=== PATIENT | male | born 1960 | race Caucasian/White ===

== ENCOUNTER → 2019-11-22 08:09 | Outpatient (CLI) | payer OTHER, SELFPAY ==
[2019-11-22 09:28] LABS: ALB/GLOB Ratio 1.1 RATIO (0.9-2.4); AST(SGOT) 30 U/L (15-37); Alanine Aminotransfer ALT/SGPT 42 U/L (16-61); Albumin, Serum 4.1 g/dL (3.2-5.0); Alkaline Phosphatase 55 U/L (45-117); Anion Gap 7 (5-15); BUN 12 mg/dL (7-18); BUN/Creat Ratio 12.8 RATIO (10-20); Chloride 102 mmol/L (98-107); Cholesterol 251 mg/dL (200); Creatinine, Serum 0.94 mg/dL (0.70-1.30); EST Glomerular Filtration Rate 87 mL/min (>60); Est Glom Filt Rate - Afr Amer 106 mL/min (>60); Globulin 3.8 g/dL (2.2-4.2); Glucose 100 mg/dL (74-106); High Density Lipoprotein 116 mg/dL; Protein, Total 7.9 g/dL (6.4-8.2); Sodium Level 139 mmol/L (136-145); Triglycerides 79 mg/dL; Very Low Density Lipoprotein 16 mg/dL (5-40)
== END ==
PROVIDERS: PCP Internal Medicine; Referring Provider Internal Medicine; Visit Provider Internal Medicine
DX: I10 Essential (primary) hypertension (principal); E78.5 Hyperlipidemia, unspecified
CPT/HCPCS: 36415; 80053; 80061

== ENCOUNTER 2020-06-11 05:54 | Day surgery (SDC) | payer OTHER, SELFPAY ==
[2020-05-24 14:59] VITALS: BMI 26.9
--- NOTE | 2020-06-04 09:03 | EKG12_ITS ---
Test Reason : PRE OP Blood Pressure : / mmHG Vent. Rate : 073 BPM Atrial Rate : 073 BPM P-R Int : 174 ms QRS Dur : 108 ms QT Int : 380 ms P-R-T Axes : 048 -03 038 degrees QTc Int : 418 ms Normal sinus rhythm Normal ECG Confirmed by ANNALEE SALAS, BOB ([id number]), publication editor HITESH MONTAÑO ([id number]) on 06/05/2020 9:25:04 AM Referred By: Vitaliy Farfan Confirmed By:BOB MANTILLA MD
[2020-06-04 10:10] LABS: Anion Gap 5 (5-15); BUN 12 mg/dL (7-18); BUN/Creat Ratio 13.6 RATIO (10-20); Calcium,Total 9.6 mg/dL (8.5-10.1); Chloride 101 mmol/L (98-107); Creatinine, Serum 0.88 mg/dL (0.70-1.30); EST Glomerular Filtration Rate 94 mL/min (>60); Est Glom Filt Rate - Afr Amer 113 mL/min (>60); Glucose 105 mg/dL (74-106); Potassium 4.1 mmol/L (3.5-5.1); Sodium Level 136 mmol/L (136-145)
[2020-06-05 17:34] VITALS: BMI 26.4
[2020-06-11] VITALS (9 sets, daily range): BP systolic 121–159; BP diastolic 72–93; PULSE 77–87; RESP 16; TEMP 36.6–37.5; O2SAT 93–100; BMI 26.3
--- NOTE | 2020-06-11 06:00 | HP_ITS ---
Intake Vital Signs 05/24/20 BMI 26.9 05/24/20 Height 5 ft 10 in 05/24/20 Weight: 193 lb 8 oz 05/24/20 BMI 27.7 05/24/20 BP 132/87 H 05/24/20 Blood Pressure Location Rt brachial 05/24/20 Position Sitting 05/24/20 Respiration 20 H 05/24/20 Pulse 99 05/24/20 Temp 98.1 F 05/24/20 Temp Source Temporal 05/24/20 Pulse Oximetry (%) 95 05/24/20 Oxygen Delivery Method room air Intake Visit Reasons: HERNIA Chief Complaint: inguinal hernia Rod Puller Required: No Is patient in pain?: No Allergies No Known Allergies Allergy (Verified 05/24/20 14:59) Medications amlodipine 10 mg tablet 10 mg PO DAILY #90 tab 09/18/19 [Rx Confirmed 05/24/20] benazepril 20 mg-hydrochlorothiazide 25 mg tablet 1 tab PO DAILY #90 tab 03/22/20 [Rx Confirmed 05/24/20] PFSH Medical History (Updated 05/24/20 @ 14:58 by Sarah Marshall) Right inguinal hernia (Acute) Hearing problem (Acute) Hypertension (Chronic) Surgical History (Updated 05/24/20 @ 14:58 by Sarah Marshall) History of colonoscopy (Acute ~2014) History of hernia repair (Acute ~2017) Family History Father Colon cancer Heart disease Hypertension Social History (Updated 05/24/20 @ 15:[address] Vitaliy Farfan MD) Smoking Status: Former smoker quit date: 08/23/93 pack-years: 3 Tobacco: How many years used: 7 how long ago did patient quit smokin years ago second hand exposure: No alcohol intake: current alcohol intake frequency: holidays/special occasions only Alcohol type: beer substance use type: does not use well-balanced diet: daily or most days caffeine: Yes (3 a day) Type: coffee during the past year weight has: remained stable what type of physical activity do you participate in: aerobics, weight training frequency: 5-6 times per week duration: 45-60 minutes/day seatbelt use: always do you feel safe at home: Yes HPI HPI HPI: ANDREE ALLEN, is a 59 M who presents to the office today for HPI HPI Surgical H&P: Yes HPI: ANDREE ALLEN, is a 59 M who presents to the office today for Right groin bulging and pain. The patient has had a history of left inguinal hernia repair with mesh. Patient reports he is having no issues on that side but he has been having bulging on the right. Patient notes that it is painful and the bulging goes away on its own. ROS General General: No weight change, appetite, fatigue, colon cancer, breast cancer or weakness HEENT HEENT: No difficulty swallowing, eye injury, eye surgery, swollen glands or hoarseness Endo Endocrine: No thyroid disease, diabetes mellitus, thyroid cancer, Hair loss, heat intolerance or cold intolerance Cardio Cardiovascular: Yes high blood pressure; no murmur, pacemaker, heart disease, atrial fibrillation, heart attack, heart stent, palpitations, shortness of breat with exertion or chest pain Psych Psychiatric: No depression, anxiety or hearing voices Resp Respiratory: No shortness of breath, No sleep apnea, No cough, No COPD, No asthma, No emphysema, No wheezing Gastro Gastrointestinal: No abdominal pain, No nausea or vomiting, No diarrhea, No constipation, No blood in stool, No acid reflux, No hemorrhoids, No ulcers, No gallbladder problem, No black,tarry stools Aiden Hematologic: No blood thinners, No blood disorders, No bleeding, No anemia, No blood clots Neuro Neurologic: No weakness Exam Const General: cooperative Orientation: alert, oriented x3 Resp Effort & Inspection: normal respiratory effort Auscultation: clear to auscultation bilaterally Cardio Rate: regular rate Rhythm: regular rhythm Heart Sounds: no murmurs GI Inspection: non-distended Palpation: soft, hernia indirect inguinal on the right, nontender Assessment & Plan Problems 1. Right inguinal hernia K40.90 Plan Patient has a right inguinal hernia. I discussed robotic assisted laparoscopic right inguinal hernia repair with mesh. I discussed the risks including but not limited to bleeding, infection, injury to other organs, injury to spermatic cord, recurrence of hernia. The patient understands the risks and is well to proceed. We discussed the current risks associated with COVID-19. While it is understood that there is a community spread of COVID-19, the risk of ernesto COVID-19 while at [facility] ([facility]) is very low; however, the risk cannot be completely mitigated because of the community spread of the disease. We discussed in detail the risk of exposure to and/or potential harm posed by the COVID-19 virus with having a surgery/procedure at this time versus the risk of delaying the surgery/procedure. It is not possible to know either the risk of delaying the surgery or procedure or chance of getting an infection with perfect accuracy, but a joint decision was made to proceed at this time with the scheduled surgery/procedure as indicated on the consent form. Patient was notified that we will need to comply with any screening or testing [facility] wishes to perform or that surgery may be delayed for any positive results. Vitaliy Farfan MD Pager: [facility] [address] [place] [address], [address] [place] [address] Office: Coding Level of Care Code Off vis,new,level 3 Diagnoses Right inguinal hernia K40.90 I have re-examined the patient. There are no clinical changes since date of exam.
[2020-06-11] MEDS: Lactated Ringers 1,000 ML 100 ML IV ×2 (06:45→08:45)
[2020-06-11] MEDS: Cefazolin 2 GM in 0.9% Normal Saline 100 ML IV (07:25)
[2020-06-11] MEDS: Bupivacaine Mpf 0.5% 30 ML VIAL (08:36)
--- NOTE | 2020-06-11 09:15 | PCM.OPRPT ---
Problem List (1) Right inguinal hernia Status: Acute Report of Operation Date of Procedure: 06/11/20 Pre-Operative Diagnosis: Right inguinal hernia Post-Operative Diagnosis: Same Surgery/Procedure Performed:: Robotic assisted laparoscopic right inguinal hernia repair with mesh Description of Procedure: Patient was brought back to the operating room and general anesthesia was induced. The abdomen was prepped and draped in usual sterile fashion. An incision was made superior to the umbilicus and the fascia was grasped and elevated and a Veress needle was placed into the abdomen and a drop test was performed. The abdomen was then insufflated to 15 mmHg and the Veress needle was removed. The camera port was placed into the abdomen. The camera was placed and the abdomen inspected for injuries and there were none. The patient had a large right inguinal hernia. Next a right lower quadrant and left lower quadrant 8 mm port were placed and the patient was placed in Trendelenburg position and the robot was docked. Next the scissors with cautery used to make an incision in the peritoneum and the flap was dissected inferiorly until the hernia sac was identified. The hernia sac was reduced into the abdomen and its adhesions were lysed. Once the hernia was cleared on all sides a progrip mesh was unfolded and placed into the inguinal region completely covering the hernia. The peritoneum was reapproximated using a running 3 OV lock suture. The mesh was completely covered by peritoneum at the end of the procedure. Next the robot was undocked and the ports removed allowing the air to desufflate from the abdomen. The incisions were anesthetized and closed with interrupted 4-0 Monocryl sutures as well as Steri-Strips and bandages. Patient tolerated the procedure well and the scrotum was checked at the end of the case and contain both testicles. Grafts/Implants Used: Progrip mesh - Admit VTE Documentation VTE Mechan Device Prophylaxis: SCD's
--- NOTE | 2020-06-11 09:25 | PCM.DC.HER ---
Discharge Diet: Light diet - advance as tolerated Discharge Activity: Return to Normal Activity, May Not Drive - for 2-3 days or while taking narcotic pain meds., May Shower - with the bandage in place 1-2 days after surgery. Lifting Restrictions: 20 pounds for 6 weeks. Additional Activity Instructions:: Climbing stairs is fine, walking is encouraged. Sitting in bed may be uncomfortable. Sitting up using your lateral muscles (sitting up sideways) is usually more comfortable. Do not drive, work heavy equipment of sign legal documents for 24 hours. If your hernia repair was an ingunial repair, you may have scrotal swelling, an ice pack and/or athletic support can provide more comfort. Pain medications may cause nausea, you should typically eat light foods as you take your pain medications. Pain medications may also cause constipation. If you have difficulty with this, discuss with your doctor. Call your doctor if your incision/area has: Continuous Slow Oozing, Sudden Increased Bleeding, Increased Pain/ Swelling, Increased Redness, Foul Smelling Discharge Call your doctor if you observe: Fever of 101 or Higher Suture Line Care: Avoid Pulling/Pushing, Avoid Pinching/Bending Change Dressing in (Days):: 3 - Leave steri-strips for 1 week. May protect with a guaze bandaid. Cleanse incision/area with: Keep Dressing Clean & Dry Allergies/Adverse Reactions: Allergies No Known Allergies Allergy (Verified 06/05/20 17:31) Medications to take at Discharge amlodipine 10 mg tablet 10 mg PO DAILY #90 tab 09/18/19 benazepril 20 mg-hydrochlorothiazide 25 mg tablet 1 tab PO DAILY #90 tab 03/22/20 Oxycodone HCl/Acetaminophen [Percocet 5-325 mg Tablet] 1 - 2 tab PO Q6H PRN PRN 5 Days #20 tablet 06/11/20 The following prescriptions were given: Oxycodone HCl/Acetaminophen [Percocet 5-325 mg Tablet] 1 - 2 tab PO Q6H PRN PRN 5 Days #20 tablet PRN Reason: Pain Score 4-10/10 Transmission Status: Sent to [facility] Test Results: Test results from this visit will be discussed in further detail at your follow-up appointment, if applicable. Please Follow Up With: Vitaliy Farfan MD When: Please call to schedule 2 week follow up appointment. [phone]
== END 2020-06-11 10:57 | disposition home or self-care (01) ==
LOC: SDC 05:54 → AC 05:55
PROVIDERS: Anesthesiology; PCP Internal Medicine; Referring Provider Surgery; Visit Provider Surgery
PROC: (CPT 49650; principal; 2020-06-11 07:10)
DX: K40.90 Unilateral inguinal hernia, without obstruction or gangrene, not specified as recurrent (principal); I10 Essential (primary) hypertension; Z87.891 Personal history of nicotine dependence; Z79.899 Other long term (current) drug therapy; Z20.818 Contact with and (suspected) exposure to other bacterial communicable diseases
CPT/HCPCS: 00840; 49650; S2900; 36415; 80048; 87635; 93005; C9803; J7120; A4216; J2405; U0003

== ENCOUNTER → 2020-12-17 09:23 | Outpatient (CLI) | payer OTHER, SELFPAY ==
[2020-09-11 17:37] VITALS: BMI 25.8
[2020-12-17 12:54] LABS: Absolute Lymphocyte Count 1.48 X10^3/uL (0.83-4.51); Basophil# 0.02 X10^3/uL; Basophil% 0.2 % (0-1); Eosinophils% 1.1 % (0-5); Hematocrit 49.1 % (40-54); Hemoglobin 16.5 g/dL (13.0-16.5); Lymphocyte # 1.48 X10^3/ul (0.83-4.51); Lymphocyte % 15.6 % (19-41); Mean Corp Hgb Conc 33.6 g/dL (32-36); Mean Corpuscular Hgb 30.7 pg (27.0-32.0); Mean Corpuscular Volume 91.4 fL (80-94); Mean Platelet Vol. 9.6 fl (6.2-12.0); Monocyte# 0.89 X10^3/uL; Monocyte% 9.4 % (0-10); NRBC Flagged by Analyzer 0 % (0-5); Neutrophil # 6.98 X10^3/uL (2.7-7.7); Neutrophil % 73.4 % (47-70); Platelet Count 352 K/mm3 (150-450); RBC Distribution Width CV 12.7 % (11.6-14.6); RBC Distribution Width SD 42.9 fl (35.1-43.9); Red Blood Count 5.37 M/mm3 (4.6-6.2); White Blood Count 9.5 K/mm3 (4.4-11.0)
[2020-12-17 13:29] LABS: ALB/GLOB Ratio 1.1 RATIO (0.9-2.4); AST(SGOT) 31 U/L (15-37); Alanine Aminotransfer ALT/SGPT 42 U/L (16-61); Albumin, Serum 4.1 g/dL (3.2-5.0); Alkaline Phosphatase 57 U/L (45-117); Anion Gap 6 (5-15); BUN 17 mg/dL (7-18); BUN/Creat Ratio 19.5 RATIO (10-20); Calcium,Total 9.9 mg/dL (8.5-10.1); Chloride 99 mmol/L (98-107); Cholesterol 256 mg/dL (200); Creatinine, Serum 0.87 mg/dL (0.70-1.30); EST Glomerular Filtration Rate 95 mL/min (>60); Est Glom Filt Rate - Afr Amer 115 mL/min (>60); Globulin 3.9 g/dL (2.2-4.2); Glucose 123 mg/dL (74-106); High Density Lipoprotein 122 mg/dL; Sodium Level 136 mmol/L (136-145); T4 Free Direct 1.02 ng/dL (0.76-1.46); Thyroid Stim Hormone (TSH) 0.87 uIU/mL (0.358-3.74); Triglycerides 94 mg/dL; Very Low Density Lipoprotein 19 mg/dL (5-40)
== END ==
PROVIDERS: PCP Internal Medicine; Referring Provider Internal Medicine; Visit Provider Internal Medicine
DX: I10 Essential (primary) hypertension (principal); E78.5 Hyperlipidemia, unspecified; R63.4 Abnormal weight loss; R19.4 Change in bowel habit
CPT/HCPCS: 36415; 80053; 80061; 83630; 84439; 84443; 85025; 87506

== ENCOUNTER → 2021-07-23 14:47 | Outpatient (CLI) | payer OTHER, SELFPAY | PROVIDERS: PCP Internal Medicine; Visit Provider Family Medicine | DX: Z23 Encounter for immunization (principal) | CPT/HCPCS: 0004A; 91300 ==

== ENCOUNTER → 2022-03-27 | Outpatient (CLI) | payer OTHER, SELFPAY ==
[2022-03-27 12:44] LABS: Absolute Lymphocyte Count 1.98 X10^3/uL (0.83-4.51); Absolute Neutrophil Count 3.2 X10^3/uL (2.0-7.7); Basophil# 0.03 X10^3/uL; Basophil% 0.5 % (0-1); Eosinophil# 0.33 X10^3/uL; Eosinophils% 5.4 % (0-5); Hematocrit 47.6 % (40-54); Hemoglobin 16.3 g/dL (13.0-16.5); Lymphocyte # 1.98 X10^3/ul (0.83-4.51); Lymphocyte % 32.2 % (19-41); Mean Corp Hgb Conc 34.2 g/dL (32-36); Mean Corpuscular Hgb 31.5 pg (27.0-32.0); Mean Corpuscular Volume 91.9 fL (80-94); Mean Platelet Vol. 9.4 fl (6.2-12.0); Monocyte# 0.59 X10^3/uL; Monocyte% 9.6 % (0-10); NRBC Flagged by Analyzer 0 % (0-5); Neutrophil # 3.19 X10^3/uL (2.7-7.7); Neutrophil % 51.8 % (47-70); Platelet Count 366 K/mm3 (150-450); RBC Distribution Width CV 12.6 % (11.6-14.6); RBC Distribution Width SD 43.4 fl (35.1-43.9); Red Blood Count 5.18 M/mm3 (4.6-6.2); White Blood Count 6.2 K/mm3 (4.4-11.0)
[2022-03-27 12:49] LABS: ALB/GLOB Ratio 1.1 RATIO (0.9-2.4); AST(SGOT) 21 U/L (15-37); Alanine Aminotransfer ALT/SGPT 38 U/L (16-61); Albumin, Serum 4.1 g/dL (3.2-5.0); Alkaline Phosphatase 48 U/L (45-117); Anion Gap 4 (5-15); BUN 18 mg/dL (7-18); BUN/Creat Ratio 18.2 RATIO (10-20); Calcium,Total 9.2 mg/dL (8.5-10.1); Chloride 102 mmol/L (98-107); Cholesterol 251 mg/dL (200); Creatinine, Serum 0.99 mg/dL (0.70-1.30); EST Glomerular Filtration Rate 81 mL/min (>60); Est Glom Filt Rate - Afr Amer 99 mL/min (>60); Globulin 3.8 g/dL (2.2-4.2); Glucose 90 mg/dL (74-106); High Density Lipoprotein 93 mg/dL; Potassium 4.6 mmol/L (3.5-5.1); Protein, Total 7.9 g/dL (6.4-8.2); Sodium Level 138 mmol/L (136-145); Triglycerides 55 mg/dL; Very Low Density Lipoprotein 11 mg/dL (5-40)
== END | disposition home or self-care (01) ==
LOC: BIMLAB 08:25
PROVIDERS: PCP Internal Medicine; Referring Provider Internal Medicine; Visit Provider Internal Medicine
DX: I10 Essential (primary) hypertension (principal)
CPT/HCPCS: 36415; 80053; 80061; 85025

== ENCOUNTER → 2022-11-18 | Outpatient (CLI) | payer OTHER, SELFPAY ==
[2022-11-18 12:44] LABS: Anion Gap 5 (5-15); BUN 18 mg/dL (7-18); BUN/Creat Ratio 17.6 RATIO (10-20); Calcium,Total 9.8 mg/dL (8.5-10.1); Chloride 102 mmol/L (98-107); Cholesterol 252 mg/dL (200); Creatinine, Serum 1.02 mg/dL (0.70-1.30); EST Glomerular Filtration Rate 79 mL/min (>60); Est Glom Filt Rate - Afr Amer 95 mL/min (>60); Glucose 110 mg/dL (74-106); High Density Lipoprotein 95 mg/dL; Potassium 5.1 mmol/L (3.5-5.1); Sodium Level 137 mmol/L (136-145); Triglycerides 113 mg/dL; Very Low Density Lipoprotein 23 mg/dL (5-40)
== END | disposition home or self-care (01) ==
LOC: BIMLAB 09:57
PROVIDERS: PCP Internal Medicine; Referring Provider Nurse Practitioner Family; Visit Provider Nurse Practitioner Family
DX: I10 Essential (primary) hypertension (principal); E78.5 Hyperlipidemia, unspecified; Z12.5 Encounter for screening for malignant neoplasm of prostate
CPT/HCPCS: 36415; 80048; 80061; 84153; G0103

== ENCOUNTER → 2022-12-24 | Outpatient (CLI) | payer OTHER, SELFPAY ==
--- NOTE | 2022-12-24 | IMM_PTH ---
PATIENT: ANDREE ALLEN LOC: [facility] U#:[id number] AGE/SX: 62/M ROOM: RE12/24/[address]: Dr. Howard Boyd MD : 1960 BED: DIS: 12/24/2022 SPEC #: [id number] RECD: 12/28/22 13:17 STATUS: PAUL REQ #: [id number] AILIN: 12/24/22 00:[address]: Howard Boyd DEPT: IMMUNOHISTOCHEMISTRY RECD BY: Candelaria Ramsey ENTERED: 12/28/22 13:18 SP TYPE: IMMUNO OTHR DR: Dr. Veto Jeff MD Tissues: B - PROSTATE RIGHT C - PROSTATE RIGHT D - PROSTATE LEFT F - PROSTATE LEFT Procedures: 34BE12 (add) P40 (add) 34BE12 (initial) PHYSICIAN & INSTITUTION [place] [id number] SPECIMEN INFORMATION: Tissue Source: B - Right mid, C - Right base, D - Left apex, F - Left base Clinical Info: Elevated PSA Specimen Number: [id number] B-D & F CPT code: 66026, 39163 x7 METHODOLOGY: Deparaffinized sections of prefer/formalin-fixed tissue or PAP/DQ stained slides are incubated with monoclonal/polyclonal antibodies/oligonucleotide probes. Localization is made via biotin free immunoperoxidase method. Appropriate controls are performed and reacted as expected. Results on target cell population are indicated in the following table: RESULTS: ANTIBODY / CLONE RESULT Block B P40 (BC28) negative 34BE12 (34BE12) negative Block C P40 (BC28) negative 34BE12 (34BE12) negative Block D P40 (BC28) positive 34BE12 (34BE12) positive Block F P40 (BC28) negative 34BE12 (34BE12) negative These tests were developed and their performance characteristics determined by [facility]. They may not have been cleared or approved by the U.S. Food and Drug Administration. The FDA has determined that such clearance or approval is not necessary. The above immunohistochemical/dualISH markers are ordered and reviewed by the Pathologist. INTERPRETATION: B. Right prostate, mid, core biopsy: Focal atypical small acinar proliferation (GIACOMO). C. Right prostate, base, core biopsy: Focal atypical small acinar proliferation (GIACOMO). D. Left prostate, apex, core biopsy: Prostatic tissue, negative for malignancy. F. Left prostate, base, core biopsy: Focal atypical small acinar proliferation (GIACOMO). SJ:chula 12/29/2022
--- NOTE | 2022-12-24 08:00 | PROSBIL_PTH ---
PATIENT: ANDREE ALLEN LOC: [facility] U#:[id number] AGE/SX: 62/M ROOM: RE12/24/[address]: Dr. Howard Boyd MD : 1960 BED: DIS: 12/24/2022 SPEC #: [id number] RECD: 12/24/22 12:29 STATUS: PAUL AME #: [id number] AILIN: 12/24/22 08:[address]: Howard Boyd DEPT: SURGICAL PATHOLOGY RECD BY: Angelic Dumont ENTERED: 12/25/22 12:29 SP TYPE: PROST BX NITIN DR: Dr. Veto Jeff MD Tissues: A - PROSTATE RIGHT B - PROSTATE RIGHT C - PROSTATE RIGHT D - PROSTATE LEFT E - PROSTATE LEFT F - PROSTATE LEFT Procedures: PROSTATE BX HEADER OPERATION: Prostate biopsy PRE-OP DIAGNOSIS: Elevated PSA TISSUE SUBMITTED: A - Right apex, B - Right mid, C - Right base, D - Left apex, E - Left mid, F - Left base MICROSCOPIC DIAGNOSIS A. Right prostate, apex, core biopsy: Prostatic tissue, negative for malignancy. B. Right prostate, mid, core biopsy: Focal atypical small acinar proliferation (GIACOMO). See comment. C. Right prostate, base, core biopsy: Focal atypical small acinar proliferation (GIACOMO). See comment. D. Left prostate, apex, core biopsy: Prostatic tissue, negative for malignancy. See comment. E. Left prostate, mid, core biopsy: Prostatic tissue, negative for malignancy. F. Left prostate, base, core biopsy: Atypical small acinar proliferation (GIACOMO). See comment. SJ:rg 12/28/2022 COMMENT B-D & F - Immunohistochemistry ([id number]) supports the above diagnosis. Case has been reviewed in consultation with Dr. Garcia who concurs with the above diagnosis. IDC:AM MICROSCOPIC DESCRIPTION Slides are reviewed. GROSS DESCRIPTION A - Received is one container designated prostate, right apex. The specimen consists of one elongated fragment of light kapoor-white soft tissue measuring 1.2 cm in length and 0.1 cm in diameter. The specimen is totally submitted in one cassette. B - Received is one container designated prostate, right mid. The specimen consists of two elongated fragments of light kapoor-white soft tissue each measuring 1.0 cm in length and 0.1 cm in diameter. The specimen is totally submitted in one cassette. C - Received is one container designated prostate, right base. The specimen consists of two elongated fragments of light kapoor-white soft tissue each measuring 0.7 cm in length and 0.1 cm in diameter. The specimen is totally submitted in one cassette. D - Received is one container designated prostate, left apex. The specimen consists of one elongated fragment of light kapoor-white soft tissue measuring 1.2 cm in length and 0.1 cm in diameter. The specimen is totally submitted in one cassette. E - Received is one container designated prostate, left mid. The specimen consists of two elongated fragments of light kapoor-white soft tissue each measuring 1.2 cm in length and 0.1 cm in diameter. The specimen is totally submitted in one cassette. F - Received is one container designated prostate, left base. The specimen consists of two elongated fragments of light kapoor-white soft tissue each measuring 1.2 cm in length and 0.1 cm in diameter. The specimen is totally submitted in one cassette. / SJ:rg 12/25/2022 TC:5 CPT: 32379 x6
== END | disposition home or self-care (01) ==
LOC: LABSPEC 16:17
PROVIDERS: PCP Internal Medicine; Referring Provider Urology; Visit Provider Urology
DX: R97.20 Elevated prostate specific antigen [PSA] (principal)
CPT/HCPCS: 88305; 88341; 88342; G0416

== ENCOUNTER → 2023-05-21 | Outpatient (CLI) | payer OTHER, SELFPAY ==
[2023-05-21 12:17] LABS: Absolute Lymphocyte Count 1.35 X10^3/uL (0.83-4.51); Absolute Neutrophil Count 4.1 X10^3/uL (2.0-7.7); Basophil# 0.03 X10^3/uL; Basophil% 0.5 % (0-1); Eosinophil# 0.15 X10^3/uL; Eosinophils% 2.4 % (0-5); Hematocrit 46.9 % (40-54); Hemoglobin 15.9 g/dL (13.0-16.5); Lymphocyte # 1.35 X10^3/ul (0.83-4.51); Lymphocyte % 21.6 % (19-41); Mean Corp Hgb Conc 33.9 g/dL (32-36); Mean Corpuscular Hgb 31.5 pg (27.0-32.0); Mean Corpuscular Volume 92.9 fL (80-94); Mean Platelet Vol. 9.4 fl (6.2-12.0); Monocyte# 0.55 X10^3/uL; Monocyte% 8.8 % (0-10); NRBC Flagged by Analyzer 0 % (0-5); Neutrophil # 4.12 X10^3/uL (2.7-7.7); Neutrophil % 65.7 % (47-70); Platelet Count 331 K/mm3 (150-450); RBC Distribution Width CV 12.6 % (11.6-14.6); RBC Distribution Width SD 43.1 fl (35.1-43.9); Red Blood Count 5.05 M/mm3 (4.6-6.2); White Blood Count 6.3 K/mm3 (4.4-11.0)
[2023-05-21 13:07] LABS: AST(SGOT) 29 U/L (15-37); Alanine Aminotransfer ALT/SGPT 49 U/L (16-61); Albumin, Serum 3.9 g/dL (3.2-5.0); Alkaline Phosphatase 52 U/L (45-117); Anion Gap 6 (5-15); BUN 13 mg/dL (7-18); BUN/Creat Ratio 14.5 RATIO (10-20); Calcium,Total 9.4 mg/dL (8.5-10.1); Chloride 102 mmol/L (98-107); Cholesterol 244 mg/dL (200); EST Glomerular Filtration Rate 91 mL/min (>60); Est Glom Filt Rate - Afr Amer 110 mL/min (>60); Globulin 3.8 g/dL (2.2-4.2); Glucose 102 mg/dL (74-106); High Density Lipoprotein 106 mg/dL; Potassium 4.5 mmol/L (3.5-5.1); Protein, Total 7.7 g/dL (6.4-8.2); Sodium Level 135 mmol/L (136-145); Triglycerides 102 mg/dL; Very Low Density Lipoprotein 20 mg/dL (5-40)
== END | disposition home or self-care (01) ==
LOC: BIMLAB 08:42
PROVIDERS: PCP Internal Medicine; Referring Provider Internal Medicine; Visit Provider Internal Medicine
DX: I10 Essential (primary) hypertension (principal); E78.5 Hyperlipidemia, unspecified
CPT/HCPCS: 36415; 80053; 80061; 85025

== ENCOUNTER → 2023-07-13 | Outpatient (CLI) | payer OTHER, SELFPAY | END | disposition home or self-care (01) | LOC: BIMLAB 09:15 | PROVIDERS: PCP Internal Medicine; Visit Provider Urology | DX: R97.20 Elevated prostate specific antigen [PSA] (principal) | CPT/HCPCS: 36415; 84153 ==

== ENCOUNTER 2024-02-02 19:24 | Emergency (ER) | payer OTHER, SELFPAY ==
[2024-02-02 19:25] VITALS: BP 135/90; PULSE 95; RESP 18; TEMP 36.6; O2SAT 93; BMI 26.5
--- NOTE | 2024-02-02 19:27 | CT_ITS ---
STUDY: CT BRAIN WITHOUT CONTRAST REASON FOR EXAM: Male, 63 years old. Trauma RADIATION DOSAGE (If Supplied By Facility): CTDIvol = ( 44.99 ) mGy, DLP = ( 829.85 ) mGycm TECHNIQUE: Transaxial CT imaging of the brain was performed without administration of intravenous contrast material. Individualized dose optimization techniques were used for this CT. COMPARISON: No relevant priors. FINDINGS: There is left frontal soft tissue swelling. Normal calvarium. Normal size ventricles and extra-axial spaces for the patient''s age. Normal white matter tracts of the cerebral hemispheres. Normal basal ganglia and thalami. Normal brainstem. Normal cerebellum. There is no intracranial hemorrhage. There are no findings of an acute ischemic infarction. Normal visualized paranasal sinuses. CT/Brain/Head without Contrast IMPRESSION: Normal unenhanced CT scan of the brain. Electronically Signed: Sacha Tao MD at 20:45 EDT ,
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
[2024-02-02] MEDS: Diphth,Pertuss(Acell),Tet Vac 0.5 ML Vial IM (19:57)
[2024-02-02] MEDS: Lidocaine/Epi/Tetracaine 50 ML 1 APPLIC TOPICAL (19:57)
[2024-02-02] MEDS: Lidocaine 2% /Epi 1:100 (50ml) 50 ML Vial INFILT (20:23)
[2024-02-02 21:24] VITALS: BP 134/78; PULSE 68; RESP 18; TEMP 37.2; O2SAT 99
== END 2024-02-02 22:05 | disposition home or self-care (01) ==
PROVIDERS: Emergency Provider Emergency Medicine; PCP Internal Medicine; Visit Provider Emergency Medicine
DX: S01.91XA Laceration without foreign body of unspecified part of head, initial encounter (principal); T21.12XA Burn of first degree of abdominal wall, initial encounter; T22.111A Burn of first degree of right forearm, initial encounter; T20.15XA Burn of first degree of scalp [any part], initial encounter; F10.129 Alcohol abuse with intoxication, unspecified; I10 Essential (primary) hypertension; Z23 Encounter for immunization; Z79.899 Other long term (current) drug therapy; W19.XXXA Unspecified fall, initial encounter; Z87.891 Personal history of nicotine dependence
CPT/HCPCS: 12013; 70450; 90471; 90715; 99285

== ENCOUNTER → 2024-10-18 | Outpatient (CLI) | payer OTHER, SELFPAY ==
[2024-10-18 12:39] LABS: Absolute Lymphocyte Count 1.57 X10^3/uL (0.83-4.51); Absolute Neutrophil Count 7.1 X10^3/uL (2.0-7.7); Basophil# 0.04 X10^3/uL; Basophil% 0.4 % (0-1); Eosinophil# 0.14 X10^3/uL; Eosinophils% 1.4 % (0-5); Hematocrit 48.1 % (40-54); Hemoglobin 16.3 g/dL (13.0-16.5); Lymphocyte # 1.57 X10^3/ul (0.83-4.51); Lymphocyte % 16.1 % (19-41); Mean Corp Hgb Conc 33.9 g/dL (32-36); Mean Corpuscular Hgb 31.1 pg (27.0-32.0); Mean Corpuscular Volume 91.8 fL (80-94); Mean Platelet Vol. 9.5 fl (6.2-12.0); Monocyte# 0.86 X10^3/uL; Monocyte% 8.8 % (0-10); NRBC Flagged by Analyzer 0 % (0-5); Neutrophil # 7.12 X10^3/uL (2.7-7.7); Neutrophil % 72.9 % (47-70); Platelet Count 342 K/mm3 (150-450); RBC Distribution Width CV 12.6 % (11.6-14.6); RBC Distribution Width SD 42.5 fl (35.1-43.9); Red Blood Count 5.24 M/mm3 (4.6-6.2); White Blood Count 9.8 K/mm3 (4.4-11.0)
[2024-10-18 13:08] LABS: ALB/GLOB Ratio 1.4 RATIO (0.9-2.4); AST(SGOT) 25 U/L (<=37); Alanine Aminotransfer ALT/SGPT 20 U/L (<=46); Albumin, Serum 4.7 g/dL (3.4-4.8); Alkaline Phosphatase 59 U/L (40-129); Anion Gap 12 (5-15); BUN 15 mg/dL (4-19); BUN/Creat Ratio 18.3 RATIO (10-20); Carbon Dioxide 26.4 mmol/L (22.0-29.0); Chloride 99 mmol/L (96-108); Cholesterol 267 mg/dL (<=200); Creatinine, Serum 0.8 mg/dL (0.8-1.3); EST Glomerular Filtration Rate 98 (>60); Globulin 3.2 g/dL (2.2-4.2); Glucose 112 mg/dL (70-99); High Density Lipoprotein 111 mg/dL; Low Density Lipoprotein Calc. 133 mg/dL; PSA,Total - Annual Screen 4.19 ng/mL (0.02-4.00); Potassium 4.8 mmol/L (3.3-5.1); Protein, Total 7.9 g/dL (5.9-8.4); Sodium Level 137 mmol/L (133-145); Total Bilirubin 0.59 mg/dL (0.00-1.30); Triglycerides 115 mg/dL; Very Low Density Lipoprotein 23 mg/dL (5-40); cholesterol:hdl ratio screen 2.41
== END | disposition home or self-care (01) ==
LOC: BIMLAB 09:57
PROVIDERS: PCP Internal Medicine; Referring Provider Internal Medicine; Visit Provider Internal Medicine
DX: Z00.00 Encounter for general adult medical examination without abnormal findings (principal)
CPT/HCPCS: 36415; 80053; 80061; 84153; 85025; G0103